=== PATIENT | male | born 1975 | race African-American/Black ===

== ENCOUNTER 2024-04-11 22:53 | Emergency (ER) | payer SELFPAY ==
[2024-04-11] MEDS: Acetaminophen 325 MG Tab PO ONE (23:20)
[2024-04-11 23:49] LABS: INFLUENZA A NAA NEGATIVE (NEGATIVE); INFLUENZA B NAA NEGATIVE (NEGATIVE); RESPIRATORY SYNCYTIAL VIR NAA NEGATIVE (NEGATIVE)
[2024-04-12 04:02] LABS: CORONAVIRUS COVID-19 NAA POSITIVE (NEGATIVE)
== END 2024-04-12 00:06 | disposition home or self-care (01) ==
LOC: MW.ED 22:53
DX: U07.1 COVID-19 (principal); Z75.8 Other problems related to medical facilities and other health care
CPT/HCPCS: 0241U; 71045; 99283; A9270